=== PATIENT | female | born 2000 | race Asian ===

== ENCOUNTER 2020-12-03 19:40 | Emergency (ER) | payer MEDICAID ==
[2020-12-03 19:42] VITALS: BP 126/58
--- NOTE | 2020-12-03 20:23 | NUR ---
PATIENT REPORTING BACK PAIN AND INCREASES WHEN SHE MOVES AROUND/ACTIVITY. PATIENT STATES TO THIS RN THAT SHE TOOK TEST THIS MORNING AND IT WAS NEGATIVE AND TOOK ANOTHER ONE AND IT WAS POSITIVE. THEY DID NOT TELL THIS TO PA. RN NOTIFIED PA AND PREG TEST WILL BE ORDERED. IN NAD. S/O AT BEDSIDE. CALL [facility] IN [place]. WILL CONTINUE TO MONITOR.
[2020-12-03 20:53] LABS: HCG UR SG 1.034 (1.003-1.030)
== END 2020-12-03 21:56 | disposition home or self-care (01) ==
LOC: ED 21:41
DX: O26.891 Other specified pregnancy related conditions, first trimester (principal); S39.012A Strain of muscle, fascia and tendon of lower back, initial encounter; Z3A.01 Less than 8 weeks gestation of pregnancy; X58.XXXA Exposure to other specified factors, initial encounter; Y93.89 Activity, other specified; Y92.89 Other specified places as the place of occurrence of the external cause; Y99.8 Other external cause status
CPT/HCPCS: 81025; 99283